=== PATIENT | male | born 1980 | race Caucasian/White ===

== ENCOUNTER 2018-03-11 16:23 | Outpatient (CLI) | payer OTHER ==
--- NOTE | 2018-03-11 17:42 | RAD ---
TWO VIEWS OF THE CHEST: COMPARISON: None. HISTORY: Bronchitis. FINDINGS: Two views of the chest show normal sized cardiomediastinal silhouette. There is no evidence of consol idation, mass, or pleural effusion. The bones are unremarkable. IMPRESSION: No evidence of acute cardiopulmonary disease. POS: [facility]
== END 2018-03-11 16:24 | disposition home or self-care (01) ==
LOC: MADRAD 16:23
PROVIDERS: ATTEND Family Medicine
DX: J40 Bronchitis, not specified as acute or chronic (principal)
CPT/HCPCS: 71046